=== PATIENT | female | born 1995 | race Caucasian/White ===

== ENCOUNTER 2017-02-15 18:06 | Emergency (ER) | payer BC ==
[2017-02-15 18:53] VITALS: BP 114/66
--- NOTE | 2017-02-15 19:59 | UC ---
Headache HPI - HPI Summary HPI Summary: C/O Migraine headache x 7 days with pounding RUIZ with nausea and photophobia. Started on prednisone yesterday. - History Of Current Complaint Chief Complaint: UCHeadache Stated Complaint: MIGRAINE Time Seen by Provider: 02/15/17 19:52 Hx Obtained From: Patient Hx Last Menstrual Period: INFREQUENT--NOV OR DEC 2016 ?: No Onset/Duration: Gradual Onset, Lasting Days - 7, Still Present Onset Of Symptoms: Gradual Initially Headache Was: Moderate Currently Pain Is: Moderate Timing: Constant Character: Throbbing Location of Headache: Diffuse Aggravating Factor(s): Bright Lights Allevating Factor(s): Nothing Associated Signs And Symptoms: Positive: Nausea, Sinus Pressure - frontal - Risk Factors SAH Risk Factors: Negative Meningitis Risk Factors: Negative SDH Risk Factors: Negative Temporal Arteritis Risk Factors: Female - Allergies/Home Medications Allergies/Adverse Reactions: Allergies Allergy/AdvReac Type Severity Reaction Status Date / Time No Known Allergies Allergy Verified 02/15/17 18:52 Home Medications: Home Medications Acetaminophen TAB* [Tylenol TAB*] 975 mg PO Q4H PRN 02/15/17 [History Confirmed 02/15/17] Ibuprofen TAB* [Advil TAB*] 400 mg PO Q6H PRN 02/15/17 [History Confirmed ] Paroxetine HCl [Paxil] 10 mg PO DAILY 02/15/17 [History Confirmed 02/15/17] predniSONE TAB* [Deltasone TAB*] 50 mg PO DAILY 02/15/17 [History Confirmed 03/22] PMH/Surg Hx/FS Hx/Imm Hx Psychological History: Anxiety, Depression - Surgical History Surgical History: None - Family History Known Family History: Positive: Cardiac Disease, Hypertension Negative: Diabetes - Social History Occupation: Student Lives: Dormitory/Roommates Alcohol Use: None Substance Use Type: None Smoking Status (MU): Never Smoked Tobacco Review of Systems ENT: Sinus Congestion Neurological: Headache Is Patient Immunocompromised?: No All Other Systems Reviewed And Are Negative: Yes Physical Exam Triage Information Reviewed: Yes Appearance: Well-Appearing, Well-Nourished, Pain Distress Vital Signs: Initial Vital Signs Temp 97.6 F 02/15/17 18:46 Pulse 66 02/15/17 18:46 Resp 16 02/15/17 18:46 BP 114/66 02/15/17 18:46 Pulse Ox 97 02/15/17 18:46 Vital Signs Reviewed: Yes Eyes: Positive: Conjunctiva Clear ENT: Positive: Pharynx normal, Nasal congestion, TMs normal Neck exam: Normal Respiratory Exam: Normal Cardiovascular Exam: Normal Musculoskeletal Exam: Normal Neurological Exam: Normal Psychological Exam: Normal Skin Exam: Normal Re-Evaluation - Re-Evaluation First Eval Re-Evaluation Time: 20:30 Change: Improved - headache starting to suhail. Having some flushing. Headache Course/Dx - Differential Dx/Diagnosis Differential Diagnosis/HQI/PQRI: Migraine, Sinus Headache, Tension Headache Provider Diagnoses: Status migrainosis. Allergic rhinitis Discharge - Discharge Plan Condition: Stable Disposition: HOME Prescriptions: SUMAtriptan TAB* [Imitrex TAB*] 100 mg PO SEE INSTRUCTIONS PRN #9 tab PRN Reason: Migraine Headache Patient Education Materials: Migraine Headache (ED), Sumatriptan (By mouth), Allergic Rhinitis (ED) Referrals: Non Staff,Doctor [Primary Care Provider] - Additional Instructions: [employer] SINUS RINSE: CHECK OUT AT [employer] Saline nasal wash helps with mucous, allergies and congestion. It can be used up to twice a day or only as needed. Use lukewarm tap water. It does not have to be sterilized or distilled water. Do 1/3 on each side and snort out of both nostrils. Repeat the process with 1/6 of the bottle on each side with snorting in between to finish the solution in the bottle Use the sinus rinse daily until you can 'Pop" your ears.
[2017-02-15] MEDS ORDERED: SUMAtriptan SQ* 6 MG/0.5 ML VIAL SUBCUT ONE (20:00)
== END 2017-02-15 20:50 | disposition home or self-care (01) ==
LOC: UCCORT 18:06
DX: G43.009 Migraine without aura, not intractable, without status migrainosus (principal); J30.9 Allergic rhinitis, unspecified; R11.0 Nausea; F41.9 Anxiety disorder, unspecified; F32.9 Major depressive disorder, single episode, unspecified
CPT/HCPCS: 96372; 99202; G0463; J3030

== ENCOUNTER 2018-08-11 08:47 | Emergency (ER) | payer BC ==
[2018-08-11 09:07] VITALS: BP 82/54
--- NOTE | 2018-08-11 10:13 | UC ---
Throat Pain/Nasal Compa HPI - HPI Summary HPI Summary: Pt presents with c/o cough, nasal congestion, ST, sinus pressure X 1 week. Pt unsure of fever, denies fever, reports fatigue and generalized malaise. Pt has been taking OTC medications with some symptoms relief. - History of Current Complaint Chief Complaint: UCGeneralIllness Stated Complaint: ST Time Seen by Provider: 08/11/18 10:00 Hx Obtained From: Patient Hx Last Menstrual Period: August 03 ?: No Onset/Duration: Gradual Onset, Lasting Days - 7, Still Present Severity: Mild Pain Intensity: 2 Cough: Nonproductive Associated Signs & Symptoms: Positive: Dysphagia, Hoarseness, Sinus Discomfort, Nasal Discharge - Epiglottits Risk Factors Epiglottis Risk Factors: Negative - Allergies/Home Medications Allergies/Adverse Reactions: Allergies Allergy/AdvReac Type Severity Reaction Status Date / Time No Known Allergies Allergy Verified 02/15/17 18:52 PMH/Surg Hx/FS Hx/Imm Hx Previously Healthy: Yes - Surgical History Surgical History: None - Family History Known Family History: Positive: Cardiac Disease, Hypertension Negative: Diabetes - Social History Occupation: Employed Full-time Lives: With Family Alcohol Use: None Substance Use Type: None Smoking Status (MU): Never Smoked Tobacco Have You Smoked in the Last Year: No - Immunization History Vaccination Up to Date: Yes Review of Systems All Other Systems Reviewed And Are Negative: Yes Constitutional: Positive: Fatigue Skin: Positive: Negative Eyes: Positive: Negative ENT: Positive: Sore Throat, Sinus Congestion Respiratory: Positive: Cough Cardiovascular: Positive: Negative Gastrointestinal: Positive: Negative Genitourinary: Positive: Negative Motor: Positive: Negative Neurovascular: Positive: Negative Musculoskeletal: Positive: Myalgia Neurological: Positive: Headache Psychological: Positive: Negative Is Patient Immunocompromised?: No Physical Exam Triage Information Reviewed: Yes Appearance: Ill-Appearing Vital Signs: Initial Vital Signs Temp 99.1 F 08/11/18 09:00 Pulse 78 08/11/18 09:00 Resp 18 08/11/18 09:00 BP 82/54 08/11/18 09:00 Pulse Ox 100 08/11/18 09:00 Vital Signs Reviewed: Yes Eye Exam: Normal ENT: Positive: Nasal congestion, Hoarse voice, Other - PND Dental Exam: Normal Neck exam: Normal Respiratory Exam: Normal Cardiovascular Exam: Normal Musculoskeletal Exam: Normal Neurological Exam: Normal Psychological Exam: Normal Skin Exam: Normal Throat Pain/Nasal Course/Dx - Differential Dx/Diagnosis Differential Diagnosis/HQI/PQRI: Influenza, Pharyngitis, Tonsillitis, URI Provider Diagnosis: Viral syndrome Discharge - Sign-Out/Discharge Documenting (check all that apply): Patient Departure All imaging exams completed and their final reports reviewed: No Studies - Discharge Plan Condition: Stable Disposition: HOME Prescriptions: Benzonatate CAP* [Tessalon 100 MG CAP*] 200 mg PO Q8H PRN #30 cap PRN Reason: Cough Fexofenadine/Pseudoephedrine [Erin-D 24 Hour Tablet] 1 each PO DAILY #10 tab.er.24h guaiFENesin ER TAB [Mucinex*] 600 mg PO Q12H #14 tab.er predniSONE TAB* [Deltasone 10 MG TAB*] 30 mg PO DAILY #12 tab Patient Education Materials: Viral Syndrome (ED) Referrals: Neha Todd PA [Primary Care Provider] - If Needed - Billing Disposition and Condition Condition: STABLE Disposition: Home
== END 2018-08-11 10:23 | disposition home or self-care (01) ==
LOC: UCCORT 08:47
DX: B34.9 Viral infection, unspecified (principal); R05 Cough
CPT/HCPCS: 99212; G0463